=== PATIENT | female | born 1970 | race Hispanic/Latino ===

== ENCOUNTER → 2020-05-29 | Outpatient (CLI) | payer MEDICAID | END | disposition home or self-care (01) | LOC: RAH 14:24 | PROVIDERS: ATTEND Internal Medicine | DX: Z12.31 Encounter for screening mammogram for malignant neoplasm of breast (principal) | CPT/HCPCS: 77067 ==

== ENCOUNTER → 2023-06-01 | Emergency (ER) | payer MEDICAID ==
[~2023-06-01] VITALS: Ht 157.5 cm; Wt 99.8 kg
[~2023-06-01] MED LIST: GABA-529 PO; HYDROCODONE/ACETAMINOPHEN 5/325 MG TAB PO ONE; IBUP-2070 PO; VALA10002 PO; VALACYCLOVIR HCL 500 MG TABLET PO SCH
[2023-06-01 17:09] VITALS: BP 151/98; PULSE 89; RESP 20
== END ==
LOC: EDH 16:40
DX: B02.9 Zoster without complications (principal); F41.9 Anxiety disorder, unspecified; F31.9 Bipolar disorder, unspecified; Z90.49 Acquired absence of other specified parts of digestive tract

== ENCOUNTER 2023-09-03 12:28 | Emergency (ER) | payer BC, MEDICAID ==
[~2023-09-03] VITALS: Ht 61 cm; Wt 86.2 kg
[~2023-09-03 12:28] MED LIST changes: -HYDROCODONE/ACETAMINOPHEN 5/325 MG TAB PO ONE; -VALACYCLOVIR HCL 500 MG TABLET PO SCH
[2023-09-03] MEDS ORDERED: MELO5CAP3 PO (16:38)
[2023-09-03 16:49] VITALS: BP 141/72; PULSE 72; RESP 18; O2SAT 100
== END 2023-09-03 16:53 | disposition home or self-care (01) ==
LOC: EDH 12:28
DX: M19.09 Primary osteoarthritis, other specified site (principal); F41.9 Anxiety disorder, unspecified; F31.9 Bipolar disorder, unspecified; Z79.624 Long term (current) use of inhibitors of nucleotide synthesis; Z79.899 Other long term (current) drug therapy; Z90.49 Acquired absence of other specified parts of digestive tract
CPT/HCPCS: 73110

== ENCOUNTER 2024-08-03 21:40 | Emergency (ER) | payer MEDICAID ==
[~2024-08-03] VITALS: Ht 157.5 cm; Wt 81.6 kg
[~2024-08-03 21:40] MED LIST changes: +MELO5CAP3 PO
--- NOTE | 2024-08-04 00:13 | ERN ---
ED Note History of Present Illness Stated Complaint: DIZZY Chief Complaint: Dizzy/Light Headed Time Seen by MD: 11:09 Dictation: This is a 54-year-old female who presented to the emergency room stating that she has been feeling dizzy and lightheaded and has fallen multiple times in the past few years. She had a fall at home with a small laceration to the chin. She is not on any anticoagulation she has no history of any seizure activity or loss of consciousness. 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 She has had multiple knee injections and carries a diagnosis of fibromyalgia Denied any history of headaches blurred vision diplopia slurred speech motor weakness. Temperature 98.9 pulse 86 respirations 20 blood pressure 154/87 with a pulse oximetry of 98% on room air Her chronic medical problems include history of anxiety, bipolar depression, ataxia and vertigo Allergies: Coded Allergies: No Known Drug Allergies (Unverified Allergy, Unknown, 06/01/23) Home Meds Active Scripts Meloxicam, Submicronized (Meloxicam) 5 Mg Capsule, 5 MG PO DAILY for 30 Days, #30 CAP Prov:LISSA BRUSH 09/03/23 Gabapentin (Gabapentin) 100 Mg Capsule, 100 MG PO TID, #15 CAP 0 Refills Prov:PABLO BABB NP 06/01/23 Ibuprofen (Ibuprofen) 600 Mg Tablet, 800 MG PO q8 hours PRN PRN for PAIN, #15 TAB 0 Refills Prov:PABLO BABB NP 06/01/23 Valacyclovir HCl (Valtrex) 1,000 Mg Tablet, 1000 MG PO TID for 7 Days, #21 TAB 0 Refills Prov:PABLO BABB NP 06/01/23 Past Medical History Past Medical History: Anxiety, Arthritis, Bipolar, Depression, Other Additional Past Medical Hx: HX OF ATAXIA Surgical History: None PSYCH History: anxiety, bipolar, depression Family History: Negative Social History: Negative History: Not Applicable RN Note Reviewed/Agreed w/PFSH: Yes Review of System Dictation Constitutional: Negative for fever,chills, and weight loss Eyes: Negative for injury, pain,redness, and discharge ENT: Negative for injury,pain or swelling Cardiovascular: Negative for chest pain, palpitations, and edema Respiratory: Negative for shortness of breath, cough, and wheezing, Abdomen/GI: Negative for abdominal pain, nausea, vomiting, diarrhea, and constipation Back: Negative for injury and pain : Negative for injury, bleeding and discharge MS/Extremity: Negative for injury and deformity Skin: Negative for rash, and discoloration Neuro: Negative for headache, weakness, numbness, tingling, and seizure lightheadedness and fall as described in the history of present illness Psych: Negative for suicide ideation, homicidal ideation, and hallucinations Initial Vital Sign VS Vital Signs Date Time Temp Pulse Resp B/P (MAP) Pulse Ox O2 Delivery O2 Flow Rate FiO2 08/03/24 22:40 99.0 86 20 154/87 99 Room Air 08/04/24 02:06 0 21 Physical Exam Dictation General: awake, alert, NAD looks older than her stated age of 54 Head/Face: Normocephalic, atraumatic about 2.4 cm laceration in the submental area with no active bleeding. Eyes: PERRL, EOMI, vision at baseline ENT: oral cavity clear, TMs clear, no signs of infection Neck: Trachea midline, supple, no nuchal rigidity Cardiovascular: RRR, normal S1/S2, No MRGs, no JVD Respiratory: CTAB, no respiratory distress, No rales or wheezes Abdomen: Soft, non-tender, non-distended, normal bowel sounds, no guarding or rebound. Skin: Warm, dry, normal turgor, no rash MS/Extremity: Pulses equal, no cyanosis, neurovascular intact, FROM Neuro: COAx4, GCS 15, strength 5/5, CN 2-12 intact, normal cerebellar exam, normal gait, Psych: Normal behavior, mood, and affect normal Extremities-trace edema without any palpable cords, Homans sign is negative Results (Laboratory/Radiology) Laboratory/Radiology Laboratory Tests Test 08/04/24 00:54 White Blood Count 5.3 K/uL (4.8-10.8) Red Blood Count 4.91 MIL/uL (4.00-5.50) Hemoglobin 12.4 g/dL (12.0-16.0) Hematocrit 38.9 % (36-48) Mean Corpuscular Volume 79.2 fL (79-99) Mean Corpuscular Hemoglobin 25.3 pg (27.0-33.0) L Mean Corpuscular Hemoglobin Concent 31.9 g/dL (32.0-36.0) L Red Cell Distribution Width 13.6 % (11.0-15.5) Platelet Count 205 K/uL (130-400) Mean Platelet Volume 10.0 fL (7.5-10.5) Immature Granulocyte % (Auto) 0.2 % (0-1) Neutrophils (%) (Auto) 53.4 % (40.0-77.0) Lymphocytes (%) (Auto) 31.4 % (21.0-51.0) Monocytes (%) (Auto) 8.1 % (3.0-13.0) Eosinophils (%) (Auto) 6.0 % (0.0-8.0) Basophils (%) (Auto) 0.9 % (0.0-5.0) Neutrophils # (Auto) 2.8 K/uL (1.8-7.7) Lymphocytes # (Auto) 1.7 K/uL (1.0-4.8) Monocytes # (Auto) 0.4 K/uL (0.1-1.0) Eosinophils # (Auto) 0.32 K/uL (0.00-0.70) Basophils # (Auto) 0.05 K/uL (0.00-0.20) Absolute Immature Granulocyte (auto 0.01 K/uL (0-1) Nucleated Red Blood Cells 0.0 % (0.0-0.19) Sodium Level 136 mmol/L (136-145) Potassium Level 3.3 mmol/L (3.5-5.1) L Chloride Level 99 mmol/L (101-111) L Carbon Dioxide Level 32 mmol/L (21-32) Blood Urea Nitrogen 15 mg/dL (7-18) Creatinine 0.8 mg/dL (0.5-1.0) Glomerular Filtration Rate Calc 89 mL/min (>90) Random Glucose 119 mg/dL (70-105) H Total Calcium 8.7 mg/dL (8.5-10.1) Total Creatine Kinase 43 U/L (21-232) Troponin I High Sensitivity 5.2 ng/L (4-50) B-Type Natriuretic Peptide 29 pg/mL (0-100) Lipase 33 U/L (16-77) Human Chorionic Gonadotropin, Quant 2 mIU/mL (0-5) Serum Alcohol < 3 mg/dL (0-10) Labs Reviewed?: Yes ED Course ED Course Orders Procedure Category Date Status Time Alcohol, Blood LAB 08/04/24 Complete 00:08 Cardiac Panel LAB 08/04/24 Complete 00:08 Cbc With Differential LAB 08/04/24 Complete 00:08 Basic Metabolic Panel LAB 08/04/24 Complete 00:08 B-Type Natriuretic LAB 08/04/24 Complete Peptide 00:08 Hcg,Quantitative LAB 08/04/24 Complete 00:08 Urinalysis Profile LAB 08/04/24 Logged 00:08 12 Lead Ekg Tracing- EKG 08/04/24 Logged Technical 00:08 Chest 1vw RAD 08/04/24 Taken 00:08 Drug Screen Urine LAB 08/04/24 Logged 00:08 0.9%Nacl 1000ml (Ns PHA 08/04/24 Complete 1000ml) 00:30 Ondansetron 4mg Inj PHA 08/04/24 Complete (Zofran 4mg Inj) 00:30 Lipase LAB 08/04/24 Complete 00:08 Ct Head/Brain W/O CT 08/04/24 Taken Contrast 01:44 Dermabond (Dermabond) PHA 08/04/24 Complete 02:22 Current Medications Medications (Trade) Dose Ordered Sig/Obdulia Route PRN Reason Start Time Stop Time Status Last Admin Dose Admin Octyl Cyanoacrylate (Dermabond) 1 each STK-MED ONCE TP 08/04/24 02:22 08/04/24 02:22 DC Ondansetron HCl (zoFRAN 4MG INJ) 4 mg ONCE ONCE IVP 08/04/24 00:30 08/04/24 00:31 DC 08/04/24 01:05 Sodium Chloride 1,000 ml @ 0 mls/hr ONCE ONCE IV 08/04/24 00:30 08/04/24 00:31 DC 08/04/24 01:05 Vital Signs Date Time Temp Pulse Resp B/P (MAP) Pulse Ox O2 Delivery O2 Flow Rate FiO2 08/04/24 02:06 98.6 85 18 122/65 99 Room Air* 0 21 08/03/24 22:40 99.0 86 20 154/87 99 Room Air We will perform diagnostic labs, advanced imaging and administer medications according to the patient's complaint. Once the results are available, will review and personally interpreted the labs to rule out any acute life- threatening emergency the trach require immediate intervention and treatment. I will then re-evaluate the patient after treatment and diagnostic exams have return to determine whether the patient requires any further testing, can safely be discharged home or need further admission to hospital for additional treatment and evaluation. Labs reviewed CBC is with a normal limits. BNP 7 showed a potassium of 3.3, BUN and creatinine of 15 and 0.8. Brain natriuretic peptide is 29 lipase is 33. test is negative CT scan of the head without contrast was done which was essentially unremarkable but radiology report is pending at this time I had a long discussion with the patient who is quite knowledgeable about her disease and she indicated that she takes many medications for her psychiatric illness-Klonopin, a citalopram, trazodone, ropinirole for restless legs, lithium I went over the available test results and she stated that she would rather not take any additional medications like Antivert or steroids especially with her bipolar disorder at which could push her into full manic episode. She is insisting on following up with her primary care in 2 days. I have recommended to discuss multiple medications and interactions and to minimize the list of medications she takes. Medical Decision Making MDM MDM: Differential diagnosis: Concussion, intracranial bleed, depressed skull fracture, medication side effects, neuropathy Rationale: Tests considered and ordered secondary to shared decision making include: Previous outside records reviewed: Old ER visits. Risk of complication and/or morbidity or mortality of patient management: None Medications-Per medication reconciliation Need for hospitalization: Patient does not meet criteria for hospitalization. Need for emergency major/minor surgery: No There are no social concerns with this patient. Prescription drug management Prescriptions will include symptomatic care Patient's prior external medical records from other ER visits were reviewed by me as indicated. Prior testing and results from previous visits were reviewed. Prior tests were taken into account with medical decision making and resource utilization, independent historian/historians were used to obtain complete medical history. I independently interpreted the test that were performed, results were reviewed by me and considered findings on radiology if ordered. Medical management and examination interpretation discussions were had by me with other qualified healthcare professionals as indicated for the patient's care. Procedure Wound Location: face Wound's Depth, Shape: superficial, linear Wound Explored: clean Irrigated w/ Saline (ccs): 15 Betadine Prep?: Yes Wound Debrided: minimal Wound Repaired With: Dermabond Sterile Dressing Applied?: Yes Problem List Problem List: (1) Fall from standing (2) Laceration of chin (3) Closed head injury (4) Fibromyalgia DX & DISP Disposition: Discharge Departure Impression: Primary Impression: Fall from standing Additional Impressions: Closed head injury, Laceration of chin, Fibromyalgia Condition: Stable Additional Instructions: Patient and the caregiver have been informed of all the diagnostic tests and the imaging conducted during the today's visit to the emergency room and has verbalized understanding of the results I have personally reviewed and interpret ed all diagnostic exams performed here in the ER today as well as the vital signs documented by the nursing staff. The patient is now being discharged to home and should follow up with the primary care physician or the specialist as directed by the ER staff. Follow-up with primary care provider in 1 to 2 days. Take medications as directed here in the emergency room. Okay to continue home medications unless otherwise discussed during your visit in the emergency room today. Return to your nearest emergency room if symptoms worsen or if there is no improvement. Call 911 if you need immediate assistance. Take Tylenol or Motrin ov [id number] as needed and if no contraindications are present. Increase oral hydration. A wound culture or urine culture was ordered here in the emergency room department please follow-up with primary care provider and advise them to get repeat ports from our facility. If you had any Nawaf wrap/splints that were applied here, please do not remove them until you see your primary care or specialty. Patient stated that she has not appointment with her physician Dr. Delgado in 2 days and she would like to follow up with him Referrals: BETTIE DELGADO MD (PCP) ALEJANDRA CORREIA MD Aug 04, 2024 00:13
--- NOTE | 2024-08-04 00:57 | NUR ---
ASSUMED PT CARE
[2024-08-04] MEDS: 0.9%NACL 1000ML 1,000 ML IV ONE (01:05)
[2024-08-04] MEDS: ondanSETRON 4MG INJ IVP ONE (01:05)
[2024-08-04 01:06] LABS: BASOPHILS # (AUTO) 0.05 K/uL (0.00-0.20); BASOPHILS % (AUTO) 0.9 % (0.0-5.0); EOSINOPHILS # (AUTO) 0.32 K/uL (0.00-0.70); HEMATOCRIT 38.9 % (36-48); IMMATURE GRANULOCYTE ABSOLUTE 0.01 K/uL (0-1); LYMPHOCYTES # (AUTO) 1.7 K/uL (1.0-4.8); LYMPHOCYTES % (AUTO) 31.4 % (21.0-51.0); MEAN CORPUSCULAR HEMOGLOBIN 25.3 pg (27.0-33.0); MEAN CORPUSCULAR HGB CONC 31.9 g/dL (32.0-36.0); MEAN CORPUSCULAR VOLUME 79.2 fL (79-99); MONOCYTES # (AUTO) 0.4 K/uL (0.1-1.0); MONOCYTES % (AUTO) 8.1 % (3.0-13.0); NEUTROPHILS # (AUTO) 2.8 K/uL (1.8-7.7); NEUTROPHILS % (AUTO) 53.4 % (40.0-77.0); PLATELET COUNT (AUTO) 205 K/uL (130-400); RED BLOOD CELL COUNT(AUTO) 4.91 MIL/uL (4.00-5.50); RED CELL DISTRIBUTION WIDTH 13.6 % (11.0-15.5); WHITE BLOOD COUNT (AUTO) 5.3 K/uL (4.8-10.8)
[2024-08-04 01:14] LABS: CARBON DIOXIDE 32 mmol/L (21-32); CHLORIDE 99 mmol/L (101-111); CREATININE 0.8 mg/dL (0.5-1.0); GLOMERULAR FILTR. RATE CALC 89 mL/min (>90); GLUCOSE,RANDOM 119 mg/dL (70-105); POTASSIUM 3.3 mmol/L (3.5-5.1); SODIUM SERUM 136 mmol/L (136-145); UREA NITROGEN, BLOOD 15 mg/dL (7-18)
[2024-08-04 01:25] LABS: B-TYPE NATRIURETIC PEPTIDE 29 pg/mL (0-100)
[2024-08-04 01:26] LABS: ALCOHOL, BLOOD < 3 mg/dL (0-10); CREATINE KINASE, TOTAL 43 U/L (21-232); HCG,QUANTITATIVE 2 mIU/mL (0-5)
[2024-08-04] MEDS: OCTYL 2-CYANOACRYLATE 1 EACH TP ONE (02:37)
[2024-08-04 03:52] VITALS: BP 126/62; PULSE 88; RESP 18; TEMP 98.7; O2SAT 99
--- NOTE | 2024-08-04 07:29 | EKG ---
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
--- NOTE | 2024-08-04 09:56 | HMCIMG ---
CT HEAD WITHOUT CONTRAST INDICATION: Dizziness, fall. TECHNIQUE: Noncontrast axial helical CT images from the vertex through the skull base using 5 mm slice thickness without contrast material. CT was performed with one or more of the following dose reduction techniques: Automated exposure control, adjustment of the mA and/or kV according to patient size, or use of iterative reconstruction technique. COMPARISON: None FINDINGS: The cerebral and cerebellar hemispheres are age-appropriate in appearance. No evidence for abnormal extra-axial fluid collections or masses. The ventricles and sulci are normal in size and configuration. No evidence for intracranial parenchymal, epidural, or subdural hemorrhage, mass effect or midline shift. The haque-white matter differentiation is well preserved. No secondary evidence to suggest acute ischemia. The brainstem and cerebellum appear normal. The visualized orbits appear unremarkable. Large right maxillary sinus mucus retention cyst. Remainder of the visible paranasal sinuses and mastoid air cells are clear. The calvarium appears normal. IMPRESSION: No acute intracranial process identified.
--- NOTE | 2024-08-04 10:06 | HMCIMG ---
PORTABLE CHEST RADIOGRAPH INDICATION: Near syncope COMPARISON: 04/04/2016 FINDINGS: Heart size is normal. The pulmonary vascularity and lilian appear normal. No abnormal pulmonary parenchymal opacity or consolidation identified. No significant pleural effusion noted. No pneumothorax detected. IMPRESSION: No radiographic evidence for any acute cardiopulmonary process.
== END 2024-08-04 03:53 | disposition home or self-care (01) ==
LOC: EDH 21:40
DX: S01.81XA Laceration without foreign body of other part of head, initial encounter (principal); M19.90 Unspecified osteoarthritis, unspecified site; M79.7 Fibromyalgia; R10.2 Pelvic and perineal pain; Z79.1 Long term (current) use of non-steroidal anti-inflammatories (NSAID); Z79.624 Long term (current) use of inhibitors of nucleotide synthesis; Z79.899 Other long term (current) drug therapy; W18.39XA Other fall on same level, initial encounter; Y93.89 Activity, other specified; Y92.89 Other specified places as the place of occurrence of the external cause; Y99.8 Other external cause status
CPT/HCPCS: 99285; 82550; 84484; 80048; 83880; 84702; 83690; 85025; 36415; 96374; 70450; 96361; 71045; 12011; 93005; J7030; J2405

== ENCOUNTER 2024-08-12 12:24 | Emergency (ER) | payer MEDICAID ==
[~2024-08-12] VITALS: Ht 157.5 cm; Wt 82.6 kg
--- NOTE | 2024-08-12 13:39 | ERN ---
General Chief Complaint: Mechanical Fall Stated Complaint: FALL Time Seen by MD: 12:53 History of Present Illness Initial Comments 54-year-old female who presents for mechanical fall. She was has a restaurant, she had mechanical trip, she hit her chin and her left shoulder. She denies loss of consciousness. She was GCS 15. She complains of left shoulder pain increased with palpation, there is a small bruise to the arm although she was full range of motion. She has a small laceration to the bottom of her chin. No other complaints Allergies: Coded Allergies: No Known Drug Allergies (Unverified Allergy, Unknown, 06/01/23) Home Meds Active Scripts Meloxicam, Submicronized (Meloxicam) 5 Mg Capsule, 5 MG PO DAILY for 30 Days, #30 CAP Prov:LISSA BRUSH 09/03/23 Gabapentin (Gabapentin) 100 Mg Capsule, 100 MG PO TID, #15 CAP 0 Refills Prov:PABLO BABB NP 06/01/23 Ibuprofen (Ibuprofen) 600 Mg Tablet, 800 MG PO q8 hours PRN PRN for PAIN, #15 TAB 0 Refills Prov:PABLO BABB NP 06/01/23 Valacyclovir HCl (Valtrex) 1,000 Mg Tablet, 1000 MG PO TID for 7 Days, #21 TAB 0 Refills Prov:PABLO BABB NP 06/01/23 Past Medical History Past Medical History: High Cholesterol, Hypertension Medical History Other: HX OF ATAXIA Past Surgical History: Other, Family History Family History: Negative Social History Social History: Negative Female( History) History: Not Applicable ROS Dictation CONSTITUTIONAL: No chills, no fever, no weakness, no diaphoresis, no malaise. HEAD/FACE: No signs of trauma. EENT: No eye pain, no blurred vision, no tearing, no double vision, no ear pain, no ear discharge, no nose pain, no nasal congestion, no throat pain, no throat swelling, no mouth pain. RESPIRATORY: No cough, no orthopnea, no SOB, no stridor, no wheezing. CARDIOVASCULAR: No chest pain, no edema, no palpitations, no syncope. GASTROINTESTINAL/ABDOMINAL: No abdominal pain, no constipation, no diarrhea, no nausea, no vomiting. GENITOURINARY: No abnormal discharge, no dysuria, no frequent urination, no hematuria. No complaints of pain in the genitals. MUSCULOSKELETAL: Head pain, neck pain, left shoulder pain INTEGUMENTARY: No change in color, no change in hair/nails, no dryness, no les ion, no lumps, no rash. NEUROLOGICAL/PSYCH: No anxiety, not depressed, no emotional problem, no headache, no numbness, no pre-existing deficit, no history of seizures, no tremors, no weakness. HEMATOLOGIC/LYMPHATIC: Not anemic, no history of blood clots, no apparent bleeding, no bruising, glands not swollen. All Systems Negative, Except as Noted. Physical Exam Physical Exam Dictation VITAL SIGNS: Reviewed. GENERAL APPEARANCE: Alert, oriented x3, no acute distress, HEAD AND FACE: Small abrasion to the chin EYES: PERRL, pink conjunctivas, eyelid no trauma, anterior chamber clear. EARS: Pinnas intact and no signs of trauma or erythema. Ear canals clear and no discharge. TMs no erythema. NOSE: No discharge, no bleeding. OROPHARYNX: Mouth normal, teeth no caries, tongue pink. Pharynx clear, no erythema. Tonsils no exudates, no abscesses noted. Mucous membrane moist. NECK: Supple, non-tender, no thyromegaly, no masses, no JVD, no bruits. BREAST: Deferred. CHEST: No tenderness, no crepitus, no paradoxical movement, no retractions. LUNGS: Clear, well-ventilated, symmetric, no rales, no wheezing, no rhonchi, no stridor, good breath sounds bilaterally. HEART: Regular rate, regular rhythm, no murmur, no gallops. VASCULAR: No peripheral edema. ABDOMEN: Soft, positive bowel sounds, nondistended, no guarding, nontender, no rebound, no masses no hepatomegaly, no splenomegaly, no Kulkarni's sign, no hernias. RECTAL: Deferred. GENITAL: Deferred. NEUROLOGICAL: Normal speech, gross motor function intact, gross sensory function intact. MUSCULOSKELETAL: Neck nontender, full range of motion, back nontender, full range of motion. Left shoulder swelling EXTREMITIES: Nontender, full range of motion. SKIN: Color pink, dry, no turgor, no rash, no lacerations, no abrasions, no contusions. LYMPHATICS: Deferred. MDM CC: Left shoulder pain and head pain status post fall Historian: Patient Comorbidities: Dyslipidemia, hypertension Limitations by social determinants of health: None Differential diagnosis: Head injury, head trauma, cervical spine trauma, shoulder injury, soft tissue injury, fracture, other. Vital signs: Stable, remained stable in the ER CT head without contrast (independently interpreted by me): No acute bleeding or fractures CT cervical spine without contrast (independently interpreted by me): No acute bleeding or fractures Shoulder x-ray (independently interpreted by me): No dislocation or fractures. Treatment in ED: 2 mg IV morphine, 15 mg IV Toradol Re-evaluation: Pain controlled Symptoms are most consistent with soft tissue injury. Mild head injury. No signs of significant brain injury, dislocation or fractures. At this point in time patient pain is controlled. We will DC with pain control and recommend PCP follow up as needed. ED Course Orders Procedure Category Date Status Time Ct Head/Brain W/O CT 08/12/24 Resulted Contrast 12:59 Ct Cervical Spine W/O CT 08/12/24 Resulted Contrast 12:59 Shoulder Comp 2+Vws Lt RAD 08/12/24 Resulted 13:00 Ketorolac PHA 08/12/24 Complete Tromethamine 15mg/Ml 13:30 Morphine 2mg Syg PHA 08/12/24 Complete (Morphine 2mg Syg) 13:30 Current Medications Medications (Trade) Dose Ordered Sig/Obdulia Route PRN Reason Start Time Stop Time Status Last Admin Dose Admin Ketorolac Tromethamine (toRADol) 15 mg ONCE ONCE IV 08/12/24 13:30 08/12/24 13:31 DC 08/12/24 13:45 Morphine Sulfate (morPHINE 2MG SYG) 2 mg ONCE ONCE IVP 08/12/24 13:30 08/12/24 13:31 DC 08/12/24 13:45 Vital Signs Date Time Temp Pulse Resp B/P (MAP) Pulse Ox O2 Delivery O2 Flow Rate FiO2 08/12/24 12:27 97.5 86 17 116/55 99 Room Air 0 DX & DISP Disposition: Discharge Departure Impression: Primary Impression: Injury of left shoulder Additional Impression: Minor head injury Condition: Stable Scripts Acetaminophen with Codeine (Acetaminophen-Cod #3 Tablet) 300 Mg-30 Mg Tablet 1 TAB PO Q6HPRN PRN for pain for 7 Days, #28 TAB 0 Refills Prov: JOZEF PEREYRA DO 08/12/24 Ibuprofen (Ibuprofen 800 mg Tab) 800 Mg Tab 800 MG PO Q6H PRN for PAIN, #30 TAB Prov: JOZEF PEREYRA DO 08/12/24 Additional Instructions: Your symptoms are consistent with a soft tissue injury or sprain/strain and a minor head injury. The CT scan does not show any fractures or brain injury. The shoulder x-ray does not show any dislocations or fractures. You received IV morphine and Toradol here in the ER. I have prescribed ibuprofen and Tylenol with codeine to use for pain. I also recommend that you rest the arm, and ice her shoulder as much as possible over the next few days. Please follow up with the primary doctor early next week if you continue with symptoms. Return to the emergency department as needed. Referrals: BETTIE DELGADO MD (PCP) JOZEF PEREYRA DO Aug 12, 2024 13:39
[2024-08-12] MEDS: morPHINE 2 MG SYG IVP ONE (13:45)
[2024-08-12] MEDS: ketOROlac 15MG/ML VIAL (15MG/ML) IV ONE (13:45)
--- NOTE | 2024-08-12 13:54 | HMCIMG ---
Exam Type: CT HEAD/BRAIN W/O CONTRAST Clinical Information: fall Comparison: None CT Dose Index (CTDI): 57.33 mGy Dose Length Product (DLP): 956.79 total mGy-cm Findings: There is low attenuation throughout the periventricular white matter locations, consistent with chronic small vessel ischemic changes. No acute intra- or extra-axial fluid collections are seen. There is no evidence of acute or chronic hemorrhage. There is no mass effect or shift of midline structures. There are no areas to suggest acute infarct. The skull windows show no significant abnormalities. IMPRESSION: 1. CHRONIC SMALL VESSEL ISCHEMIC CHANGES.
--- NOTE | 2024-08-12 13:56 | HMCIMG ---
Exam Type: CT cervical spine without contrast Clinical Information: fall Comparison: None Technique: Spiral axial images were performed from the base of the skull down to the thoracic vertebral bodies. Both sagittal and coronal reconstructions were performed. CT Dose Index (CTDI): 12.85 mGy Dose Length Product (DLP): 282.6 total Findings: There is straightening of the spine consistent with spasm. There are no fractures. No facet hypertrophy. The prevertebral soft tissues are normal. IMPRESSION: Cervical spasm. No fractures. This study was performed using dose reduction techniques to include automated exposure control and/or adjustment of the mA and/or kV according to patient size.
--- NOTE | 2024-08-12 15:22 | HMCIMG ---
Exam Type: SHOULDER COMP 2+VWS LT Clinical Information: L shoulder pain, fall Comparison: None FINDINGS: The examination is unremarkable. Specifically, the glenohumeral and acromioclavicular joints are preserved. Visualized portions of the humerus, the scapula, and the clavicle as well as the upper ribcage are unremarkable. No pulmonary pathology is noted in the visualized portions of the upper lobe. The soft tissues are preserved. There are no other gross abnormalities. IMPRESSION: NORMAL EXAMINATION.
[2024-08-12] MEDS ORDERED: ACET-2079 PO (16:15)
[2024-08-12] MEDS ORDERED: IBUP-2077 PO (16:15)
[2024-08-12 17:09] VITALS: BP 119/58; PULSE 85; RESP 16; TEMP 97.5; O2SAT 97
== END 2024-08-12 17:12 | disposition home or self-care (01) ==
LOC: EDH 12:24 → EEVIPCON 12:24 → EDH 17:12
DX: S00.81XA Abrasion of other part of head, initial encounter (principal); S49.92XA Unspecified injury of left shoulder and upper arm, initial encounter; E78.00 Pure hypercholesterolemia, unspecified; I10 Essential (primary) hypertension; Z79.1 Long term (current) use of non-steroidal anti-inflammatories (NSAID); Z79.624 Long term (current) use of inhibitors of nucleotide synthesis; Z79.899 Other long term (current) drug therapy; W18.39XA Other fall on same level, initial encounter; Y93.89 Activity, other specified; Y92.89 Other specified places as the place of occurrence of the external cause; Y99.8 Other external cause status
CPT/HCPCS: 99285; 70450; 96374; 96375; 73030; 72125; J1885; J2270

== ENCOUNTER 2024-11-23 13:07 | Emergency (ER) | payer MEDICAID ==
[~2024-11-23 13:07] MED LIST changes: +ACET-2079 PO; +IBUP-2077 PO
--- NOTE | 2024-11-23 13:18 | ERN ---
ED Note History of Present Illness Stated Complaint: SOB Chief Complaint: Shortness of Breath Time Seen by MD: 13:09 Dictation: PATIENT IS A 54-YEAR-OLD FEMALE COMING IN WITH MULTIPLE COMPLAINTS TO INCLUDE FLU-LIKE SYMPTOMS WITH SORE THROAT PAINFUL SWALLOWING SINUS CONGESTION. SINCE SHE SAID SHE HAS SHORTNESS BREATH ON EXERTION WITH A NON PRODUCTIVE COUGH. FINALLY, SHE IS COMPLAINING OF GREEN EXUDATE FROM HER LEFT EYE SHE HAS HAD FOR 4-5 DAYS STARTING LAST FRIDAY. SHE WENT TO SEE HER DOCTOR THIS MORNING AND HER DOCTOR WAS OUT OF THE OFFICE SO THE [facility] VICE PRESIDENT TOLD HER TO COME TO THE EMERGENCY ROOM. STATES SHE HAS ONLY TAKEN TYLENOL FOR HER SYMPTOMS SINCE LAST FRIDAY. NO NAUSEA VOMITING NO DIARRHEA NO LOSS OF TASTE OR SMELL. SHE STATES SHE STILL HAS A TONSILLAR Allergies: Coded Allergies: No Known Drug Allergies (Unverified Allergy, Unknown, 06/01/23) Home Meds Active Scripts Acetaminophen with Codeine (Acetaminophen-Cod #3 Tablet) 300 Mg-30 Mg Tablet, 1 TAB PO Q6HPRN PRN for pain for 7 Days, #28 TAB 0 Refills Prov:JOZEF PEREYRA DO 08/12/24 Ibuprofen (Ibuprofen 800 mg Tab) 800 Mg Tab, 800 MG PO Q6H PRN for PAIN, #30 TAB Prov:JOZEF PEREYRA DO 08/12/24 Meloxicam, Submicronized (Meloxicam) 5 Mg Capsule, 5 MG PO DAILY for 30 Days, #30 CAP Prov:LISSA BRUSH V [employer]OR EXP[employer] 09/03/23 Gabapentin (Gabapentin) 100 Mg Capsule, 100 MG PO TID, #15 CAP 0 Refills Prov:PABLO BABB NP 06/01/23 Ibuprofen (Ibuprofen) 600 Mg Tablet, 800 MG PO q8 hours PRN PRN for PAIN, #15 TAB 0 Refills Prov:PABLO BABB NP 06/01/23 Valacyclovir HCl (Valtrex) 1,000 Mg Tablet, 1000 MG PO TID for 7 Days, #21 TAB 0 Refills Prov:PABLO BABB NP 06/01/23 Past Medical History Past Medical History: Anxiety, Arthritis, Bipolar, Hypertension Additional Past Medical Hx: HX OF ATAXIA Surgical History: Cholecystectomy, Family History: Negative Social History: Negative History: Not Applicable RN Note Reviewed/Agreed w/PFSH: Yes Review of System Dictation CONSTITUTIONAL: NEGATIVE EXCEPT FOR HPI FEVER CHILLS HEAD/FACE: NEGATIVE EXCEPT FOR HPI EENT: NEGATIVE EXCEPT FOR HPI SINUS CONGESTION WITH SORE THROAT AND PAINFUL SWALLOWING. RESPIRATORY: NEGATIVE EXCEPT FOR HPI SOB/COUGH FOR FOUR DAYS GASTROINTESTINAL/ABDOMINAL: NEGATIVE EXCEPT FOR HPI GENITOURINARY: NEGATIVE EXCEPT FOR HPI MUSCULOSKELETAL: NEGATIVE EXCEPT FOR HPI INTEGUMENTARY: NEGATIVE EXCEPT FOR HPI NEUROLOGICAL/PSYCH: NEGATIVE EXCEPT FOR HPI HEMATOLOGIC/LYMPHATIC: NEGATIVE EXCEPT FOR HPI ALL SYSTEMS NEGATIVE, EXCEPT NOTED ABOVE. 13 POINT REVIEW OF SYSTEMS ASSESSED AND ALL NEGATIVE EXCEPT FOR ABOVE. Initial Vital Sign VS Vital Signs Date Time Temp Pulse Resp B/P (MAP) Pulse Ox O2 Delivery O2 Flow Rate FiO2 11/23/24 13:09 100.2 95 22 166/79 100 Room Air 11/23/24 13:40 0 21 Physical Exam Dictation VITAL SIGNS REVIEWED GENERAL APPEARANCE: ALERT, ORIENTED X 3, MILD ACUTE DISTRESS, WELL DEVELOPED, NOURISHED. HEAD AND FACE: NON-TRAUMATIC. EYES: PERRL, GREEN DISCHARGED FROM LEFT EYE. EYELIDS NORMAL EOMS INTACT EARS: PINNAS INTACT AND NO SIGNS OF TRAUMA OR ERYTHEMA EAR CANALS CLEAR AND NO DISCHARGE TM NO ERYTHEMA NOSE: SINUS CONGESTION BILATERALLY OROPHARYNX: MOUTH NORMAL, TONGUE PINK, PHARYNX CLEAR,NO ERYTHEMA, TONSILS 3/4 BILATERALLY AND CRYPTIC., NO ABSCESSES NOTED, MUCOUS MEMBRANE MOIST UVULA MIDLINE, VOICE IS CLEAR NECK: SUPPLE, NON-TENDER, NO THYROMEGALY, NO MASSES, NO JVD, NO BRUITS BREAST:DEFERRED CHEST:NO TENDERNESS, NO CREPITUS, NO PARADOXICAL MOVEMENT, NO RETRACTIONS LUNGS:CLEAR, WELL-VENTILATED, SYMMETRIC, NO RALES, NO WHEEZING, NO RHONCHI, NO STRIDOR, GOOD BREATH SOUNDS BILATERALLY HEART: REGULAR RATE, REGULAR RHYTHM, NO MURMUR, NO GALLOPS VASCULAR: NO PERIPHERAL EDEMA, ABDOMEN: SOFT, POSITIVE BOWEL SOUNDS, NONDISTENDED, NO GUARDING, NONTENDER, NO REBOUND, NO MASSES NO HEPATOMEGALY, NO SPLENOMEGALY, NO PATEL'S SIGN, NO HERNIAS. RECTAL: DEFERRED GENITAL: DEFERRED NEUROLOGICAL: NORMAL SPEECH, MOTOR FUNCTION INTACT, SENSORY FUNCTION INTACT MUSCULOSKELETAL: NECK NONTENDER, FULL RANGE OF MOTION, BACK NONTENDER, FULL RANGE OF MOTION, EXTREMITIES: NONTENDER, FULL RANGE OF MOTION SKIN: COLOR PINK, DRY, NO TURGOR, NO RASH, NO LACERATIONS, NO ABRASIONS, NO CONTUSIONS. LYMPHATIC: DEFERRED Results (Laboratory/Radiology) Laboratory/Radiology Laboratory Tests Test 11/23/24 13:20 Influenza Type A Antigen Negative For Type A Influenza Type B Antigen Negative For Type B SARS-CoV-2 Antigen (Rapid) PRESUMPTIVE NEGATIVE Group A Streptococcus Rapid negative (NEGATIVE) 1350/chest x-ray negative Labs Reviewed?: Yes ED Course ED Course Orders Procedure Category Date Status Time Covid19 (Sars Antigen LAB 11/23/24 Complete Rapid) 13:12 Influenza Type A & B, LAB 11/23/24 Complete Rapid 13:12 Rapid (Group A Strep) LAB 11/23/24 Complete 13:12 Acetaminophen 500mg PHA 11/23/24 Complete Tab (Tylenol 500mg T 13:30 Dexamethasone 4mg/Ml PHA 11/23/24 Complete 1ml Vial (Dexametha 13:30 Ceftriaxone 1g Vial PHA 11/23/24 Complete (Rocephine 1g Inj) 13:30 Chest 1vw RAD 11/23/24 Taken 13:14 Current Medications Medications (Trade) Dose Ordered Sig/Obdulia Route PRN Reason Start Time Stop Time Status Last Admin Dose Admin Acetaminophen (TYLenol 500MG TAB) 1,000 mg ONCE ONCE PO 11/23/24 13:30 11/23/24 13:31 DC 11/23/24 13:34 Ceftriaxone Sodium (ROCEphine 1G INJ) 1 gm ONCE ONCE IM 11/23/24 13:30 11/23/24 13:31 DC 11/23/24 13:33 Dexamethasone Sodium Phosphate (dexaMETHasone 4MG/ML 1ML VIAL) 8 mg ONCE ONCE IM 11/23/24 13:30 11/23/24 13:31 DC 11/23/24 13:34 Vital Signs Date Time Temp Pulse Resp B/P (MAP) Pulse Ox O2 Delivery O2 Flow Rate FiO2 11/23/24 13:40 100.0 87 22 124/39 96 Room Air* 0 21 11/23/24 13:09 100.2 95 22 166/79 100 Room Air 1400/labs unremarkable, chest x-ray is clear. Patient will be discharged home with a acute tonsillitis unspecified, viral upper URI with cough, acute left conjunctivitis bacteria Medical Decision Making MDM Medical decision-making based on empiric treatment for acute tonsillitis unspecified Patient has swabs for flu COVID and strep negative Chest x-ray clear Patient discharged home with antibiotics for acute tonsillitis unspecified, Viral URI with cough, left bacterial conjunctivitis DX & DISP Disposition: Discharge Departure Impression: Primary Impression: Viral URI with cough Additional Impressions: Acute tonsillitis, unspecified, Acute bacterial conjunctivitis of left eye, Fever Condition: Stable Scripts Prednisone (Prednisone) 20 Mg Tablet 1 TAB PO AD for 6 Days, #14 TAB 0 Refills TAKE 1 TAB BY MOUTH THREE TIMES PER DAY X3 DAYS, THEN TAKE 1 TAB BY MOUTH TWICE A DAY X2 DAYS, THEN TAKE 1 TAB BY MOUTH ONCE A DAY X1 DAY. Prov: TRACI HAYWOOD NP 11/23/24 Albuterol Sulfate (Ventolin Hfa/Proventil Hfa/Proair Hfa) 90 Mcg Puff 2 PUFF IH Q4H for WHEEZING, #1 INHALER 0 Refills Prov: TRACI HAYWOOD NP 11/23/24 Amoxicillin/Potassium Clav (Amox Tr-K Clv 875-125 mg Tab) 875 Mg-125 Mg Tablet 1 EACH PO BID for 7 Days, #14 TAB 0 Refills Prov: TRACI HAYWOOD NP 11/23/24 Moxifloxacin HCl (Vigamox 0.5% Ophth Soln) 0.5 % Opsol 1 DROP OS TID for 7 Days, #5 ML Prov: TRACI HYAWOOD NP 11/23/24 Additional Instructions: Follow-up with primary care provider in 1 to 2 days. Take medications as directed here in the emergency room. Okay to continue home medications unless otherwise discussed during your visit in the emergency room today. Return to your nearest emergency room if symptoms worsen or if there is no improvement. Call 911 if you need immediate assistance. Take Tylenol or Motrin [id number] as needed and if no contraindications are present. Increase oral hydration. A wound culture or urine culture was ordered here in the em ergency room department please follow-up with primary care provider and advise them to get repeat ports from our facility. If you had any Nawaf wrap/splints that were applied here, please do not remove them until you see your primary care or specialty. Wash hands well after using eye drops to left eye. Take antibiotics as directed until gone. Use albuterol inhaler every 4 hours while awake for the next three days. Take prednisone as directed with food daily for the next six days as directed. See your primary care doctor for follow up Referrals: BETTIE DELGADO MD (PCP) Time of Disposition: 14:02 I have reviewed the case, and I agree with, Diagnosis and Plan TRACI HAYWOOD [employer] OPERATOR Nov 23, 2024 13:18
[2024-11-23] MEDS: cefTRIAXone 1G VIAL IM ONE (13:33)
[2024-11-23] MEDS: acetaMINOPHEN 500 MG TABLET PO ONE (13:34)
[2024-11-23] MEDS: dexaMETHasone SOD PHOSPHATE 4 MG/ML 1ML VIAL IM ONE (13:34)
[2024-11-23 13:41] LABS: RAPID GROUP A STREP negative (NEGATIVE)
[2024-11-23 13:52] LABS: COVID19 (SARS ANTIGEN RAPID) PRESUMPTIVE NEGATIVE (NEGATIVE); INFLUENZA TYPE A Negative For Type A (NEGATIVE); INFLUENZA TYPE B Negative For Type B (NEGATIVE)
[2024-11-23] MEDS ORDERED: PRED20TA3 PO (14:04)
[2024-11-23] MEDS ORDERED: MOXIOS OS (14:04)
[2024-11-23] MEDS ORDERED: AMOX1TAB16 PO (14:04)
[2024-11-23] MEDS ORDERED: ALBUHFA IH (14:04)
[2024-11-23 14:16] VITALS: BP 126/45; PULSE 84; RESP 22; TEMP 99.7; O2SAT 100
--- NOTE | 2024-11-23 16:05 | HMCIMG ---
CHEST 1VW HISTORY: Shortness of breath COMPARISON: 08/04/2024 FINDINGS: A frontal projection of the chest was obtained. No acute pulmonary infiltrates is seen. The heart is normal in size. Prominent interstitial markings are seen. No evidence of aortic calcification is seen. IMPRESSION: 1. No acute pulmonary infiltrate is seen.
== END 2024-11-23 14:16 | disposition home or self-care (01) ==
LOC: EDH 13:07
DX: J03.90 Acute tonsillitis, unspecified (principal); J06.9 Acute upper respiratory infection, unspecified; R05.9 Cough, unspecified; H10.32 Unspecified acute conjunctivitis, left eye; R50.9 Fever, unspecified; B97.89 Other viral agents as the cause of diseases classified elsewhere; I10 Essential (primary) hypertension; M19.90 Unspecified osteoarthritis, unspecified site; Z79.1 Long term (current) use of non-steroidal anti-inflammatories (NSAID); Z79.624 Long term (current) use of inhibitors of nucleotide synthesis; Z79.899 Other long term (current) drug therapy; Z90.49 Acquired absence of other specified parts of digestive tract; Z20.822 Contact with and (suspected) exposure to COVID-19
CPT/HCPCS: 99284; 71045; 87426; 87880; 87804 ×2; 96372 ×2; J1100; J0696